=== PATIENT | male | born 1975 | race Caucasian/White ===

== ENCOUNTER 2019-10-13 11:55 | Emergency (ER) | payer BC ==
[~2019-10-13] VITALS: Ht 190.5 cm; Wt 86.2 kg
[~2019-10-13 11:55] MED LIST: AZIT250T6 PO; NAPR-683 PO
[2019-10-13 12:14] VITALS: BP 178/123
[2019-10-13] MEDS ORDERED: MUPIROCIN 2 % TOPICAL CREAM 30GM TUBE. TP ONE (13:00)
[2019-10-13] MEDS ORDERED: DIPHTH,PERTUSS(ACELL),TET TOX 0.5 ML DISP.SYRIN. VAX IM ONE (13:00)
[2019-10-13] MEDS ORDERED: MUPI22OI2 TP (13:19)
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
== END 2019-10-13 13:51 | disposition home or self-care (01) ==
LOC: ER 11:55
DX: T25.232A Burn of second degree of left toe(s) (nail), initial encounter (principal); T25.222A Burn of second degree of left foot, initial encounter; T31.0 Burns involving less than 10% of body surface; X15.8XXA Contact with other hot household appliances, initial encounter; Y93.89 Activity, other specified; Y92.89 Other specified places as the place of occurrence of the external cause; Y99.8 Other external cause status
CPT/HCPCS: 90471; 90715; 99283